=== PATIENT | female | born 1990 | race Caucasian/White ===

== ENCOUNTER 2017-11-29 03:51 | Inpatient (IN) | payer BC ==
[2017-11-29] MEDS ORDERED: Nalbuphine 20 MG/1 ML Amp IVPUSH PRN (04:26)
[2017-11-29] MEDS ORDERED: Ondansetron 4 MG/2 ML SDV IVPUSH PRN (04:26)
[2017-11-29] MEDS ORDERED: Sodium Chloride 0.9% 10 ML Syringe FLUSH PRN (04:26)
[2017-11-29] MEDS ORDERED: Oxytocin/Lactated Ringers 10 UNIT/1,000 ML BAG IV SCH ×2 (04:30)
[2017-11-29] MEDS: Lactated Ringers 1,000 ML IV SCH ×4 (05:05→10:38)
[2017-11-29] MEDS ORDERED: fentaNYL 100 MCG/2 ML SDV EPIDUR PRN (05:12)
[2017-11-29] MEDS ORDERED: ePHEDrine 50 MG/ML SDV IVPUSH PRN (05:12)
[2017-11-29] MEDS ORDERED: diphenhydrAMINE 50 MG/ML SDV IVPUSH PRN (05:12)
[2017-11-29] MEDS ORDERED: Bupivacaine/fentaNYL/NS 100 ML Bag EPIDUR SCH (05:15)
--- NOTE | 2017-11-29 05:43 | PCM.PREANE ---
Preanesthetic Assessment - Anesthesia/Transfusion/Family Hx Anesthesia History: No Prior Anesthesia Family History of Anesthesia Reaction: No Transfusion History: No Prior Transfusion(s) - Review of Systems General: No Symptoms Pulmonary: No Symptoms Cardiovascular: No Symptoms Gastrointestinal: No Symptoms Neurological: No Symptoms Other: Reports: None - Physical Assessment Pulse: 78 O2 Sat by Pulse Oximetry: 100 Respiratory Rate: 18 Blood Pressure: 110/82 Temperature: 97.5 F Height: 5 ft 8 in Weight: 85.049 kg ASA Class: 2 Mental Status: Alert & Oriented x3 Airway Class: Mallampati = 1 Dentition: Reports: Normal Dentition Thyro-Mental Finger Breadths: 3 Mouth Opening Finger Breadths: 3 ROM/Head Extension: Full Lungs: Clear to Auscultation, Normal Respiratory Effort Cardiovascular: Regular Rate, Regular Rhythm - Lab Values: Laboratory Last Values WBC 10.16 K/mm3 (3.98-10.04) H 11/29/17 04:40 RBC 4.01 M/mm3 (3.98-5.22) 11/29/17 04:40 Hgb 12.6 gm/L (11.2-15.7) 11/29/17 04:40 Hct 35.9 % (34.1-44.9) 11/29/17 04:40 MCV 89.5 fl (79.4-94.8) 11/29/17 04:40 MCH 31.4 pg (25.6-32.2) 11/29/17 04:40 MCHC 35.1 g/dl (32.2-35.5) 11/29/17 04:40 RDW Std Deviation 40.6 fL (36.4-46.3) 11/29/17 04:40 Plt Count 201 K/mm3 (182-369) 11/29/17 04:40 MPV 9.6 fl (9.4-12.3) 11/29/17 04:40 - Allergies Allergies/Adverse Reactions: Allergies Allergy/AdvReac Type Severity Reaction Status Date / Time No Known Allergies Allergy Verified 02/28/14 21:13 CDT - Blood Blood Available: No - Acknowledgements Anesthesia Type Planned: Epidural Pt an Appropriate Candidate for the Planned Anesthesia: Yes Alternatives and Risks of Anesthesia Discussed w Pt/Guardian: Yes Pt/Guardian Understands and Agrees with Anesthesia Plan: Yes PreAnesthesia Questionnaire - Past Health History Medical/Surgical History: Denies Medical/Surgical History Cardiovascular History: Reports: None Respiratory History: Reports: None Gastrointestinal History: Reports: None 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 Smoking Status *Q: Never Smoker Second Hand Smoke Exposure: Yes Days Per Week of Alcohol Use: 0 Recreational Drug Use History: No - HOME MEDS Home Medications: Home Meds Pnv with Ca,No.71/Iron/Fa [ Vitamin Tablet] 1 each PO BTNUNITS 01/15/15 [History] - CURRENT (IN HOUSE) MEDS Current Meds: Current Medications Diphenhydramine HCl (Benadryl) 25 mg IVPUSH Q6H PRN PRN Reason: pruritis Ephedrine Sulfate (Ephedrine Sulfate) 5 mg IVPUSH ASDIRECTED PRN PRN Reason: Hypotension Fentanyl (Sublimaze) 100 mcg EPIDUR Q3H PRN PRN Reason: Pain Last Admin: 11/29/17 05:39 Dose: 100 mcg Fentanyl/Bupivacaine HCl (Fentanyl/Bupivacaine/Ns 2 Mcg-0.125% 100 Ml) 100 ml EPIDUR ASDIRECTED MIGUEL Last Admin: 11/29/17 05:38 Dose: 100 ml Lactated Ringer's (Ringers, Lactated) 1,000 mls @ 100 mls/hr IV ASDIRECTED MIGUEL Last Admin: 11/29/17 05:05 Dose: 100 mls/hr Oxytocin/Lactated Ringer's (Pitocin In Lr 10 Units/1,000 Ml) 10 unit in 1,000 mls @ 100 mls/hr IV .CONTINUOUS MIGUEL Oxytocin/Lactated Ringer's (Pitocin In Lr 10 Units/1,000 Ml) 10 unit in 1,000 mls @ 500 mls/hr IV .CONTINUOUS MIGUEL Nalbuphine HCl (Nubain) 10 mg IVPUSH Q2H PRN PRN Reason: Pain (moderate 4-6) Ondansetron HCl (Zofran) 4 mg IVPUSH Q4H PRN PRN Reason: Nausea/Vomiting Sodium Chloride (Saline Flush) 10 ml FLUSH ASDIRECTED PRN PRN Reason: Keep Vein Open
--- NOTE | 2017-11-29 07:10 | HP ---
DATE OF ADMISSION: 11/29/2017 ADMISSION DIAGNOSIS: 37 and 6/7-week intrauterine , spontaneous rupture of membranes, active labor. HISTORY OF PRESENT ILLNESS: The patient is a 27-year-old, 2, para 1-0-0-1, white female who is admitted at 37 and 6/7 weeks' gestational age with an ARIANA of 12/14/2017 in active labor with spontaneous rupture of membranes with resultant clear amniotic fluid. The patient is eva every 4 minutes or so and is in moderate discomfort. She has made cervical dilation from her previous evaluation in clinic on 11/27/2017. She is group B strep negative. Her course has been relatively unremarkable. Her is dated by a certain last menstrual period, which started on 03/09/2017 and is supported by at least 2 ultrasounds done on 04/19/2017 and 08/03/2017. Her first visit was on 05/14/2017, and the patient had regular visits thereafter. Her vital signs have been stable throughout the , and her weight gain has been from a pregravid weight of 150 pounds to a weight of 186 pounds at her last visit. Fundal height growth has been appropriate. The patient had a 1-hour glucose tolerance test, which was normal. Her group B strep screen is negative. She plans to breastfeed. She did have her Tdap on 09/27/2017. She is desiring epidural for pain control in labor and delivery. Laboratory testing in shows blood, which is O-positive with a negative antibody screen. Platelets at first visit were 263,000 with a hemoglobin of 14.3. She is rubella immune. RPR is nonreactive. Urine culture was unremarkable. Hepatitis B and HIV assays were both negative. Gonorrhea and chlamydia were both negative. Second trimester laboratory testing showed hemoglobin of 12.5 g/dL. Her platelets were 233,000. Her 1-hour glucose tolerance test was 113. Group B strep screen done on 11/21/2017 was negative. ALLERGIES: Seasonal allergies only. No known drug allergies. CURRENT MEDICATIONS: vitamins one daily. PAST MEDICAL HISTORY: 1. Female infant born on 01/16/2016 at 39 weeks' gestational age after 9 hours of labor via normal spontaneous vaginal delivery. 2. Bilateral wrist fractures. 3. Fracture of right elbow. 4. Left leg laceration requiring repair. PAST SURGICAL HISTORY: Otherwise unremarkable. FAMILY HISTORY: Mother is alive, but has thyroid dysfunction. Father is alive and well. She has one half-sister who is alive and well and one brother alive and well. Maternal grandmother alive, but with adult-onset diabetes mellitus. Paternal grandmother secondary to old age, but did have breast cancer. Paternal grandfather , but with a history of bone cancer and adult-onset diabetes mellitus. No bleeding, clotting, anesthesia, or problems noted in the family. SOCIAL HISTORY: The patient is . is Bashir Vallecillo. 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 She does not use any significant amounts of alcohol, drugs, or tobacco. She lives with her in [place], [place]. REVIEW OF SYSTEMS: GENERAL: The patient is a well-developed and well-nourished pleasant female in moderate distress secondary to contractions. SKIN: Negative. RESPIRATORY: No infectious symptoms or shortness of breath. CARDIOVASCULAR: No chest pain or exercise intolerance. BREASTS: Negative. The patient does plan to breast feed. GI: Negative. : Changes associated with with protuberant abdomen consistent with term . MUSCULOSKELETAL: Occasional edema, but otherwise unremarkable. NEUROLOGIC: Negative. PHYSICAL EXAMINATION: VITAL SIGNS: Pregravid weight was 150 and weight at visit on 11/27/2017 was 186. Blood pressure at that time was 112/58 and heart rate was 138. Pregravid BMI was 22.8 and height is 5 feet 8 inches. GENERAL: The patient is a well-developed and well-nourished pleasant female of stated age, in moderate distress secondary to contractions. She is alert and oriented x3 and appears to be of stated age. SKIN: Warm and dry without lesions. HEENT, NECK, AND BACK: Within normal limits. LUNGS: Clear with good breath sounds in all lung chacon. CARDIOVASCULAR: Regular rate and rhythm without murmurs. BREASTS: Not examined at this time having been done before and found to be normal. ABDOMEN: Protuberant with with fundal height at 37+ cm on the last evaluation in clinic. Cervix on last evaluation in the clinic was 3 cm, -2 station, very soft consistency, mid position, 85% effaced. EXTREMITIES: No significant edema. NEUROLOGIC: Grossly within normal limits. ASSESSMENT: 1. 37 and 6/7-week intrauterine , spontaneous rupture of membranes, active labor with progression of cervical dilation. 2. The patient desiring epidural in labor and delivery. 3. Rubella titer shows immunity. 4. Group B strep screen negative. 5. The patient wishes to breastfeed. PLAN: 1. Anticipate normal spontaneous vaginal delivery. 2. Epidural p.r.n. 3. Encouraged breast feeding behavior. 4. Routine labor and delivery care. MMODAL /[id number]
[2017-11-29] MEDS: Oxytocin/Lactated Ringers 10 UNIT/1,000 ML BAG IV SCH ×2 (08:06→09:47)
--- NOTE | 2017-11-29 14:56 | PCM.SN ---
- Free Text/Narrative Note: Delivery note: Jessica is a 27-year-old 2 now para 2003 white female was admitted at 37-6/7 weeks gestational age on 11/29/2017 for active labor, spontaneous rupture membranes and progression of cervical dilation. She progressed steadily to complete cervical dilation by approximately 1030 hrs. on 11/29/2017. She had an epidural in place for labor and analgesia. She pushed for approximate 45 minutes and delivered a viable, chapman, 3370 g (7 pounds 6.9 ounce) female with Apgars of 8 and 9 and a length of 21 inches in a direct occiput anterior position. Nose and mouth were bulb suctioned and the baby was completely delivered. The baby was placed on mom's abdomen. The umbilical cord was clamped 2 and the father of the baby cut the cord. Cord was noted to have 3 vessels. Cord blood was obtained. Pitocin was started after the deliver the baby to facilitate increase in uterine tone and decrease likelihood of uterine bleeding. Patient is noted to have an intact perineum and no stitches were necessary. The placenta delivered in an intact Thakkar presentation, appeared intact and complete and was discarded per patient desire. Estimated blood loss was 100 mL. Patient plans to breast-feed. Condition: Good
[2017-11-29] MEDS ORDERED: Docusate Sodium 100 MG Cap PO PRN (15:00)
[2017-11-29] MEDS ORDERED: Lanolin 100% Cream 7 GM Tube TOP PRN (15:00)
[2017-11-29] MEDS ORDERED: Acetaminophen 325 MG Tab PO PRN (15:00)
[2017-11-29] MEDS ORDERED: Benzocaine/Menthol 20%-0.5% Spray 56 GM Canister TOP PRN (15:00)
[2017-11-29] MEDS ORDERED: Witch Hazel Medicated Pads 100/Jar TOP PRN (15:00)
[2017-11-29] MEDS ORDERED: Misoprostol 200 MCG Tab ONE (15:20)
--- NOTE | 2017-11-29 15:59 | PCM48HPAN ---
Post Anesthesia Note - EVALUATION WITHIN 48HRS OF ANESTHETIC Vital Signs in Normal Range: Yes Patient Participated in Evaluation: Yes Respiratory Function Stable: Yes Airway Patent: Yes Cardiovascular Function Stable: Yes Hydration Status Stable: Yes Pain Control Satisfactory: Yes Nausea and Vomiting Control Satisfactory: Yes Mental Status Recovered: Yes
[2017-11-29] MEDS: Ibuprofen 600 MG Tab PO PRN ×2 (16:26→20:45)
[2017-11-29] MEDS: Misoprostol 200 MCG Tab PO SCH ×2 (19:54→19:56)
[2017-11-30] MEDS: Ibuprofen 600 MG Tab PO PRN ×2 (05:06→10:31)
--- NOTE | 2017-11-30 08:44 | PCM.DCSUM1 ---
Discharge Summary - Hospital Course Free Text/Narrative:: Jessica is a 27-year-old 2 now para 2003 white female was admitted at 37 -6/7 weeks gestational age on 11/29/2017 for active labor, spontaneous rupture membranes and progression of cervical dilation. She progressed steadily to complete cervical dilation by approximately 1030 hrs. on 11/29/2017. She had an epidural in place for labor and analgesia. She pushed for approximate 45 minutes and delivered a viable, chapman, 3370 g (7 pounds 6.9 ounce) female with Apgars of 8 and 9 and a length of 21 inches in a direct occiput anterior position. Nose and mouth were bulb suctioned and the baby was completely delivered. The baby was placed on mom's abdomen. The umbilical cord was clamped 2 and the father of the baby cut the cord. Cord was noted to have 3 vessels. Cord blood was obtained. Pitocin was started after the deliver the baby to facilitate increase in uterine tone and decrease likelihood of uterine bleeding. Patient is noted to have an intact perineum and no stitches were necessary. The placenta delivered in an intact Thakkar presentation, appeared intact and complete and was discarded per patient desire. Estimated blood loss was 100 mL. Patient plans to breast-feed. The patient is done well. She is nursing without pounds, ambulatory and well and voiding without concerns. She is desiring discharge home. - Discharge Data Discharge Date: 11/30/17 Discharge Disposition: Home, Self-Care 01 Condition: Good - Patient Instructions Diet: Regular Diet as Tolerated (Nursing diet was increased calcium and calories is recommended) Activity: As Tolerated ([place] or tampons still bleeding results) Driving: May Drive Today Showering/Bathing: May Shower (May take a bath) Notify Provider of: Fever, Increased Pain, Swelling and Redness, Nausea and/or Vomiting - Discharge Plan Home Medications: Home Meds Pnv with Ca,No.71/Iron/Fa [ Vitamin Tablet] 1 each PO BTNUNITS 01/15/15 [History] Acetaminophen [Tylenol] 650 mg PO Q4H PRN tablet 11/30/17 [Rx] Ibuprofen [IJD: Ibuprofen] 600 mg PO Q4H PRN tablet 11/30/17 [Rx] Referrals: Harpal Hurst MD [Primary Care Provider] - (Return to [facility] weeks.) - Discharge Summary/Plan Comment DC Time >30 min.: No Discharge Summary/Plan Comment: Discharge instructions: 1. Discharge home 2. Diet, activity and follow-up discussed with patient. Recommend nursing diet with increased calories and calcium. 3. Precautions given concern increased pain, bleeding, temperature, signs/ symptoms of DVT/PE. 4. Medications per home medication was printed, discussed with and given to the patient. 5. Return to clinic-Dr. Hurst-[facility] in 2 weeks. Diagnosis: Term -delivered Condition: Good - Patient Data Vitals - Most Recent: Last Vital Signs Temp 36.9 C 11/30/17 04:00 Pulse 87 11/30/17 03:51 Resp 16 11/30/17 03:51 BP 105/69 11/30/17 03:51 Pulse Ox 96 11/30/17 03:51 Weight - Most Recent: 85.049 kg I&O - Last 24 hours: Intake & Output 11/29/17 11/30/17 11/30/17 22:59 06:59 14:59 Intake Total 540 Balance 540 Lab Results - Last 24 hrs: Laboratory Results - last 24 hr 11/30/17 Range/Units 07:14 WBC 11.68 H (3.98-10.04) K/mm3 RBC 3.88 L (3.98-5.22) M/mm3 Hgb 11.8 (11.2-15.7) gm/L Hct 34.8 (34.1-44.9) % MCV 89.7 (79.4-94.8) fl MCH 30.4 (25.6-32.2) pg MCHC 33.9 (32.2-35.5) g/dl RDW Std Deviation 40.3 (36.4-46.3) fL Plt Count 208 (182-369) K/mm3 MPV 10.1 (9.4-12.3) fl Med Orders - Current: Current Medications Acetaminophen (Tylenol) 650 mg PO Q4H PRN PRN Reason: mild pain or fever Benzocaine/Menthol (Dermoplast Pain Relief [place]) 0 gm TOP ASDIRECTED PRN PRN Reason: Perineal Comfort Measure Last Admin: 11/29/17 15:40 Dose: 1 can Docusate Sodium (Colace) 100 mg PO BID PRN PRN Reason: Constipation Last Admin: 11/29/17 16:26 Dose: 100 mg Emollient Ointment (Lansinoh Hpa) 0 gm TOP ASDIRECTED PRN PRN Reason: Sore Nipples Last Admin: 11/30/17 05:06 Dose: 1 applic Ibuprofen (Motrin) 600 mg PO Q4H PRN PRN Reason: Mild pain or fever Last Admin: 11/30/17 05:06 Dose: 600 mg Prenat Multivit/Drew/Iron/Folic Ac ( Plus Iron) 1 each PO DAILY [facility] Sonali Enriquez (Tucks) 1 pad TOP ASDIRECTED PRN PRN Reason: Hemorrhoid pain Last Admin: 11/29/17 15:39 Dose: 1 jar Discontinued Medications Diphenhydramine HCl (Benadryl) 25 mg IVPUSH Q6H PRN PRN Reason: pruritis Ephedrine Sulfate (Ephedrine Sulfate) 5 mg IVPUSH ASDIRECTED PRN PRN Reason: Hypotension Fentanyl (Sublimaze) 100 mcg EPIDUR Q3H PRN PRN Reason: Pain Last Admin: 11/29/17 05:39 Dose: 100 mcg Fentanyl/Bupivacaine HCl (Fentanyl/Bupivacaine/Ns 2 Mcg-0.125% 100 Ml) 100 ml EPIDUR ASDIRECTED MIGUEL Last Admin: 11/29/17 05:38 Dose: 100 ml Lactated Ringer's (Ringers, Lactated) 1,000 mls @ 100 mls/hr IV ASDIRECTED MIGUEL Last Admin: 11/29/17 10:38 Dose: 100 mls/hr Oxytocin/Lactated Ringer's (Pitocin In Lr 10 Units/1,000 Ml) 10 unit in 1,000 mls @ 100 mls/hr IV .CONTINUOUS MIGUEL Oxytocin/Lactated Ringer's (Pitocin In Lr 10 Units/1,000 Ml) 10 unit in 1,000 mls @ 500 mls/hr IV .CONTINUOUS MGIUEL Oxytocin/Lactated Ringer's (Pitocin In Lr 10 Units/1,000 Ml) 10 unit in 1,000 mls @ 12 mls/hr IV TITRATE MIGUEL; 2 MUNITS/MIN PRN Reason: Protocol Last Admin: 11/29/17 09:47 Dose: 8 munits/min, 48 mls/hr Misoprostol (Cytotec) Confirm Administered Dose 600 mcg .ROUTE .STK-MED ONE Stop: 11/29/17 15:21 Last Admin: 11/29/17 15:34 Dose: 600 mcg Misoprostol (Cytotec) 600 mcg PO Q4H MIGUEL Stop: 11/29/17 23:31 Last Admin: 11/29/17 19:56 Dose: 600 mcg Nalbuphine HCl (Nubain) 10 mg IVPUSH Q2H PRN PRN Reason: Pain (moderate 4-6) Ondansetron HCl (Zofran) 4 mg IVPUSH Q4H PRN PRN Reason: Nausea/Vomiting Sodium Chloride (Saline Flush) 10 ml FLUSH ASDIRECTED PRN PRN Reason: Keep Vein Open *Q Meaningful Use (DIS) - VTE *Q VTE Criteria *Q: - Stroke *Q Stroke Criteria *Q: - AMI *Q AMI Criteria *Q:
[2017-11-30] MEDS ORDERED: Prenatal Multivitamin with Calcium/Folic Acid/Iron Tab PO SCH (09:00)
[2017-11-30 12:37] VITALS: BP 111/67
== END 2017-11-30 13:30 | disposition home or self-care (01) | DRG 560 ==
LOC: JD.OBCHECK 03:51 → JD.OB 03:55 → JD.OBCHECK 04:27 → JD.OB 04:28 → OBSVTOIN 11:22
PROVIDERS: ADMIT Obstetrics & Gynecology; ATTEND Obstetrics & Gynecology
PROC: 10E0XZZ Delivery of Products of Conception, External Approach (ICD-10-PCS; principal; 2017-11-29)
PROC: 00HU33Z Insertion of Infusion Device into Spinal Canal, Percutaneous Approach (ICD-10-PCS; 2017-11-29)
PROC: 3E0R3BZ Introduction of Anesthetic Agent into Spinal Canal, Percutaneous Approach (ICD-10-PCS; 2017-11-29)
DX: O42.02 Full-term premature rupture of membranes, onset of labor within 24 hours of rupture (principal); Z3A.38 38 weeks gestation of pregnancy; Z37.0 Single live birth
CPT/HCPCS: 36415; 51702; 59409; 85027; A9270-GY; J2590; J3010; J7120

== ENCOUNTER 2021-04-26 07:04 | Day surgery (SDC) | payer BC ==
[~2021-04-26 07:04] MED LIST: Lactated Ringers 1,000 ML IV SCH; Lidocaine 1%/Sod Bicarbonate in NS 8.4% 1 ML Syringe IDERM PRN; Sodium Chloride 0.9% 10 ML Syringe FLUSH PRN
--- NOTE | 2021-04-26 08:17 | PCM.PREANE ---
Preanesthetic Assessment - Procedure Proposed Procedure: lavh with bs - Anesthesia/Transfusion/Family Hx Anesthesia History: No Prior Anesthesia Family History of Anesthesia Reaction: No Transfusion History: No Prior Transfusion(s) - Review of Systems General: No Symptoms Pulmonary: No Symptoms Cardiovascular: No Symptoms Gastrointestinal: No Symptoms Neurological: No Symptoms Other: Reports: None - Physical Assessment NPO Status Date: 04/25/21 NPO Status Time: 22:00 Vital Signs: Last Vital Signs Temp 97.9 F 04/26/21 07:10 Pulse 86 04/26/21 07:10 Resp 16 04/26/21 07:10 BP 107/68 04/26/21 07:10 Pulse Ox 96 04/26/21 07:10 Height: 5 ft 8 in Weight: 66.224 kg ASA Class: 1 Mental Status: Alert & Oriented x3 Airway Class: Mallampati = 1 Dentition: Reports: Normal Dentition Thyro-Mental Finger Breadths: 3 Mouth Opening Finger Breadths: 3 ROM/Head Extension: Full Lungs: Clear to Auscultation, Normal Respiratory Effort Cardiovascular: Regular Rate, Regular Rhythm - Allergies Allergies/Adverse Reactions: Allergies Allergy/AdvReac Type Severity Reaction Status Date / Time No Known Allergies Allergy Verified 04/26/21 07:59 - Blood Blood Available: No - Acknowledgements Anesthesia Type Planned: General Anesthesia Pt an Appropriate Candidate for the Planned Anesthesia: Yes Alternatives and Risks of Anesthesia Discussed w Pt/Guardian: Yes Pt/Guardian Understands and Agrees with Anesthesia Plan: Yes PreAnesthesia Questionnaire - Past Health History Medical/Surgical History: Denies Medical/Surgical History Cardiovascular History: Reports: None Respiratory History: Reports: None Gastrointestinal History: Reports: 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 OB/BYN History: Dysmenorrhea, Post- Hemorrhage Musculoskeletal History: Reports: Other (See Below) Other Musculoskeletal History: Bilateral Wrist Fractures, Right Elbow Fracture Psychiatric History: Reports: None Endocrine/Metabolic History: Reports: None Oncologic (Cancer) History: Reports: None - SUBSTANCE USE Tobacco Use Status *Q: Never Tobacco User Tobacco Use Within Last Twelve Months: No Second Hand Smoke Exposure: No Days Per Week of Alcohol Use: 0 Recreational Drug Use History: No - HOME MEDS Home Medications: Home Meds Loratadine [Claritin] 10 mg PO DAILY 04/25/21 [History] Multivitamin 1 tab PO DAILY 04/25/21 [History] - CURRENT (IN HOUSE) MEDS Current Meds: Current Medications Lactated Ringer's (Ringers, Lactated) 1,000 mls @ 125 mls/hr IV ASDIRECTED MIGUEL Stop: 04/26/21 23:00 Last Admin: 04/26/21 07:39 Dose: 125 mls/hr Documented by: Lidocaine/Sodium Bicarbonate (Lidocaine 1%/Sod Bicarbonate In Ns 8.4% 1 Ml Syringe) 0.25 ml IDERM ONETIME PRN PRN Reason: Prior to IV Start Stop: 04/26/21 23:00 Last Admin: 04/26/21 07:39 Dose: 0.25 ml Documented by: Sodium Chloride (Sodium Chloride 0.9% 10 Ml Syringe) 10 ml FLUSH ASDIRECTED PRN PRN Reason: Keep Vein Open Stop: 04/26/21 23:00
[2021-04-26] MEDS ORDERED: Bupivacaine 0.5% 30 ML SDV ONE (08:21)
[2021-04-26] MEDS ORDERED: Midazolam 1 MG/ML 2 ML SDV ONE (08:24)
[2021-04-26] MEDS ORDERED: Propofol 200 MG/20 ML SDV ONE (08:24)
[2021-04-26] MEDS ORDERED: Ondansetron 4 MG/2 ML SDV ONE ×2 (08:24→09:25)
[2021-04-26] MEDS ORDERED: Lidocaine 1% 4 ML ONE (08:24)
[2021-04-26] MEDS ORDERED: Rocuronium 50 MG/5 ML Vial ONE (08:24)
[2021-04-26] MEDS ORDERED: ceFAZolin 1 GM Vial ONE (08:25)
[2021-04-26] MEDS ORDERED: fentaNYL 250 MCG/5 ML SDV ONE (08:25)
[2021-04-26] MEDS ORDERED: Ketamine 500 mg/10 ML MDV ONE (09:14)
[2021-04-26] MEDS ORDERED: HYDROmorphone 0.5 MG/0.5 ML Syringe ONE (09:14)
[2021-04-26] MEDS ORDERED: Dexamethasone 4 MG/ML 5 ML MDV ONE (09:18)
[2021-04-26] MEDS ORDERED: Ketorolac 30 MG/ML SDV ONE (09:18)
[2021-04-26] MEDS ORDERED: HYDROmorphone 0.5 MG/0.5 ML Syringe IVPUSH PRN (09:22)
[2021-04-26] MEDS ORDERED: Ondansetron 4 MG/2 ML SDV IVPUSH PRN ×2 (09:22→10:19)
[2021-04-26] MEDS ORDERED: fentaNYL 100 MCG/2 ML SDV IVPUSH PRN (09:22)
[2021-04-26] MEDS ORDERED: Lactated Ringers 1,000 ML ONE (09:26)
[2021-04-26] MEDS: Lidocaine 1% with EPINEPHrine 1:100,000 10 ML MDV ONE ×2 (09:28→09:39)
[2021-04-26] MEDS: Sodium Chloride 0.9% 50 ML SDV ONE ×2 (09:28→09:39)
--- NOTE | 2021-04-26 10:18 | PCM.POSTAN ---
POST ANESTHESIA ASSESSMENT - MENTAL STATUS Mental Status: Alert, Oriented - VITAL SIGNS Vital Signs: Last Vital Signs Temp 97.9 F 04/26/21 07:10 Pulse 86 04/26/21 07:10 Resp 16 04/26/21 07:10 BP 107/68 04/26/21 07:10 Pulse Ox 96 04/26/21 07:10 1011 107/69 71 14 98.8 98% - RESPIRATORY Respiratory Status: Respiratory Rate WNL, Airway Patent, O2 Saturation Stable, Supplemental Oxygen - CARDIOVASCULAR CV Status: Pulse Rate WNL, Blood Pressure Stable - GASTROINTESTINAL GI Status: No Symptoms - PAIN Pain Score: 0 - POST OP HYDRATION Hydration Status: Adequate & Stable
[2021-04-26] MEDS ORDERED: Acetaminophen/oxyCODONE 325-5 MG Tab PO PRN (10:19)
--- NOTE | 2021-04-26 10:23 | PCM.OPNOTE ---
- General Post-Op/Procedure Note Date of Surgery/Procedure: 04/26/21 Operative Procedure(s): Total vaginal hysterectomy with bilateral salpingectomy Findings: Uterus, tubes and ovaries were found to be normal in appearance bilaterally. Patient has a grade 1 cystocele, grade 1 rectocele. Adequate vaginal descensus to allow for vaginal approach to his hysterectomy. Pre Op Diagnosis: Dysmenorrhea. Dyspareunia Post-Op Diagnosis: Same Anesthesia Technique: General ET Tube Other Anesthesia Type: Lidocaine with [id number] cc totallocal Primary Surgeon: Harpal Hurst Secondary Surgeon: Joseph Banda Anesthesia Provider: Sakshi Spear Citrus Fruit Colorer: Imani Sharp Reason Citrus Fruit Colorer Was Necessary: Retraction, assistance, patient safety, quality of care Fluid Replacement, Intraop: 1,200 EBL in mLs: 50 Complications: None Condition: Good Free Text/Narrative:: Surgery duration: 32 minutes Procedure: The patient was placed in supine position on the operating table. General endotracheal anesthesia was accomplished. After positioning, and adequate prep and drape, the procedure was then performed. Sterile speculum was placed in the vagina and cervix was visualized. Cervix was injected with lidocaine quarter percent with epinephrine-20 mL used. A full circumference incision was made in the cervical epithelium. The bladder was pushed well back off cervix. Posterior cul-de-sac was then entered sharply without problems. Left uterosacral was crossclamped with a Enseal vessel closure system. The left uterosacral and then the right uterosacral ligament pedicles were developed using the Enseal system. The anterior cul-de-sac was then entered without problems and the uterine vasculature, cardinal ligament and broad ligament then developed using Enseal vessel closure system. The uterus was inverted at this time and upper broad ligament fallopian tube pedicles were crossclamped with Bean clamps. Specimen was totally removed. Both these pedicles were then secured with the Enseal vessel closure system. Left and right fallopian tube was normal in appearance.. Using Enseal vessel closure system each of the tubes was then removed and sent with the specimen. The patient was found to be hemostatically intact at this time. Vaginal cuff was sutured for hemostatic reasons with a running locked suture of 0 Monocryl from the 2 o'clock position to the 10 o'clock position posteriorly. Vaginal cuff was then closed from right to left side with a running locked suture of 0 Monocryl. Patient was returned to supine position and awakened from general endotracheal anesthesia. She tolerated the procedure and left the operating room in satisfactory condition.
--- NOTE | 2021-04-26 13:13 | PCM48HPAN ---
Post Anesthesia Note - EVALUATION WITHIN 48HRS OF ANESTHETIC Vital Signs in Normal Range: Yes Patient Participated in Evaluation: Yes Respiratory Function Stable: Yes Airway Patent: Yes Cardiovascular Function Stable: Yes Hydration Status Stable: Yes Pain Control Satisfactory: Yes (crampy pain) Nausea and Vomiting Control Satisfactory: Yes Mental Status Recovered: Yes Vital Signs: Last Vital Signs Temp 98.2 F 04/26/21 12:25 Pulse 63 04/26/21 12:25 Resp 17 04/26/21 12:25 BP 107/70 04/26/21 12:25 Pulse Ox 95 04/26/21 12:25
[2021-04-26 13:14] VITALS: BP 110/75; PULSE 65
[2021-04-26] MEDS ORDERED: Ketorolac 30 MG/ML SDV IVPUSH ONE (15:30)
[2021-04-26] MEDS ORDERED: Ibuprofen 600 MG Tab PO PRN (21:30)
== END 2021-04-26 13:10 | disposition home or self-care (01) ==
LOC: JD.SDS 07:04
PROVIDERS: ATTEND Obstetrics & Gynecology
DX: N72 Inflammatory disease of cervix uteri (principal); N94.10 Unspecified dyspareunia; Z79.899 Other long term (current) drug therapy
CPT/HCPCS: 36415; 58262; 81025; 86850; 86900; 86901; A9270; J0690; J1100; J1885; J2250; J2405; J2704; J2710; J3010; J3490; J7120; 00944; J1170